=== PATIENT | male | born 1940 ===

== ENCOUNTER 2019-06-19 11:54 | Emergency (ER) | payer OTHER ==
[~2019-06-19] VITALS: Ht 170.2 cm; Wt 90.7 kg
[~2019-06-19 11:54] MED LIST: ASCO500 PO; ASPI325 PO; BENICAR; Benicar PO; CALMAGZIN PO; CRESTOR; FISH1000 PO; GARLIC; GLUCHON PO; LISI20 PO; MECL25 PO; MULVITMIND PO; OLME20 PO; SIMV80; SIMV80 PO; TAMS.4ER PO; TARKA; TERA5; TOCO1000 PO; TRAVER4240 PO; VERA240ER PO; Verapamil ER100 MG PO; Zestril40 MG PO; [UNRECOGNIZED DRUG - REMARK]; [UNRECOGNIZED DRUG - REMARK]; [UNRECOGNIZED DRUG - REMARK]; [UNRECOGNIZED DRUG - REMARK]
[2019-06-19 12:58] LABS: BASOPHILS ABSOLUTE AUTO 0.04 K/mm3 (0.00-0.23); BASOPHILS PERCENT AUTO 0 % (0-2); EOSINOPHILS ABSOLUTE AUTO 0.09 K/mm3 (0.00-0.68); EOSINOPHILS PERCENT AUTO 1 % (0-6); Hematocrit 38.6 % (37.0-53.0); Hemoglobin 12.7 g/dL (13.5-17.5); IMMATURE GRAN ABSOLUTE AUTO 0.02 K/mm3 (0.00-0.10); IMMATURE GRAN PERCENT AUTO 0 % (0-1); LYMPHOCYTES ABSOLUTE AUTO 1.39 K/mm3 (0.84-5.20); LYMPHOCYTES PERCENT AUTO 15 % (21-46); MONOCYTES ABSOLUTE AUTO 0.69 K/mm3 (0.16-1.47); MONOCYTES PERCENT AUTO 8 % (4-13); Mean Corpuscular HGB Conc 32.9 g/dL (31.5-36.5); Mean Corpuscular Volume 97 fL (80-100); Mean Platelet Volume 10.7 fL (9.1-12.4); NEUTROPHILS ABSOLUTE AUTO 6.97 K/mm3 (1.96-9.15); NEUTROPHILS PERCENT AUTO 76 % (41-73); Platelet Count 151 K/mm3 (150-400); RDW Coefficient Variation 13.3 % (11.7-14.2); RDW Standard Deviation 47.9 fL (35.1-46.3); Red Blood Cell Count 3.97 M/mm3 (4.30-5.90)
[2019-06-19 13:19] LABS: Albumin, Blood 3.5 g/dL (3.4-5.0); Albumin/Globulin Ratio 0.9 (0.8-1.8); Bilirubin, Total 0.6 mg/dL (0.1-1.0); Bun/Creatinine Ratio 23.2 (12.0-20.0); Calcium, Blood 9.2 mg/dL (8.5-10.1); Creatinine, Blood 1.81 mg/dL (0.60-1.20); Potassium, Blood 4.9 mmol/L (3.5-5.5); Total Protein, Blood 7.5 g/dL (6.4-8.2)
[2019-06-19] MEDS ORDERED: FISH OIL 1,0001 EAC1 PO (13:38)
[2019-06-19] MEDS ORDERED: Garlic1 EAC1 PO (13:38)
[2019-06-19] MEDS ORDERED: THERA1 EACH PO (13:38)
[2019-06-19] MEDS ORDERED: Vitamin C100 M1 PO (13:39)
[2019-06-19] MEDS ORDERED: CAL MAG ZINC +1 EACH PO (13:39)
[2019-06-19] MEDS ORDERED: TOCO1000 PO (13:39)
[2019-06-19] MEDS ORDERED: ASPI81CH PO (13:40)
[2019-06-19 14:14] LABS: Source, Urine Clean Catch
[2019-06-19 14:26] LABS: Bilirubin, Urine Neg (Neg); Blood, Urine 2+ (Neg); Glucose Qualitative, Urine Neg (Neg); Ketones, Urine Neg (Neg); Leukocyte Esterase, Urine 1+ (Neg); Nitrite, Urine Neg (Neg); Protein, Urine Neg (Neg); Specific Gravity, Urine 1.025 (1.003-1.022); Urobilinogen, Urine NORM (Normal)
[2019-06-19 14:31] LABS: Appearance, Urine Clear (Clear); Color, Urine Yellow (P-Yellow)
[2019-06-19 14:32] LABS: Bacteria Few /hpf; Squamous Epithelial Cells Few /hpf (Few); White Blood Cells, Urine 0-2 /hpf (0-5)
[2019-06-19] MEDS ORDERED: Augmentin 875-1 EACH PO (15:59)
[2019-06-19] MEDS ORDERED: Percocet 5-3251 EACH PO (16:28)
[2019-06-19] MEDS ORDERED: CEFP200 PO (16:28)
[2019-06-19] MEDS ORDERED: Colace250 MG PO (16:28)
== END 2019-06-19 17:26 | disposition home or self-care (01) ==
LOC: ER 11:54
PROVIDERS: Physician Assistant
DX: K52.9 Noninfective gastroenteritis and colitis, unspecified (principal); N13.2 Hydronephrosis with renal and ureteral calculous obstruction; I10 Essential (primary) hypertension; E78.5 Hyperlipidemia, unspecified; Z87.891 Personal history of nicotine dependence; Z88.2 Allergy status to sulfonamides; Z79.899 Other long term (current) drug therapy; Z79.82 Long term (current) use of aspirin
CPT/HCPCS: 36415; 74176; 80053; 81001; 83690; 85025; 87086; 93005; 93010; 96361; 96374; 96375; 99284-25; J1170; J2405; J7120

== ENCOUNTER 2021-04-21 18:09 | Observation (INO) | payer OTHER ==
[~2021-04-21] VITALS: Ht 170.2 cm; Wt 99.8 kg
[~2021-04-21 18:09] MED LIST changes: +ASPI81CH PO; +Augmentin 875-1 EACH PO; +CAL MAG ZINC +1 EACH PO; +CEFP200 PO; +Colace250 MG PO; +FISH OIL 1,0001 EAC1 PO; +Garlic1 EAC1 PO; +Percocet 5-3251 EACH PO; +THERA1 EACH PO; +Vitamin C100 M1 PO
[2021-04-21 19:10] LABS: BASOPHILS ABSOLUTE AUTO 0.03 K/mm3 (0.00-0.23); BASOPHILS PERCENT AUTO 0 % (0-2); EOSINOPHILS PERCENT AUTO 4 % (0-6); Hematocrit 36.5 % (37.0-53.0); Hemoglobin 12.3 g/dL (13.5-17.5); IMMATURE GRAN ABSOLUTE AUTO 0.01 K/mm3 (0.00-0.10); IMMATURE GRAN PERCENT AUTO 0 % (0-1); LYMPHOCYTES ABSOLUTE AUTO 1.73 K/mm3 (0.84-5.20); LYMPHOCYTES PERCENT AUTO 26 % (21-46); MONOCYTES ABSOLUTE AUTO 0.54 K/mm3 (0.16-1.47); MONOCYTES PERCENT AUTO 8 % (4-13); Mean Corpuscular HGB 32.8 pg (26.0-34.0); Mean Corpuscular HGB Conc 33.7 g/dL (31.5-36.5); Mean Corpuscular Volume 97 fL (80-100); Mean Platelet Volume 11.1 fL (9.1-12.4); NEUTROPHILS ABSOLUTE AUTO 4.18 K/mm3 (1.96-9.15); NEUTROPHILS PERCENT AUTO 62 % (41-73); Platelet Count 185 K/mm3 (150-400); RDW Coefficient Variation 14.8 % (11.7-14.2); RDW Standard Deviation 52.6 fL (35.1-46.3); Red Blood Cell Count 3.75 M/mm3 (4.30-5.90); White Blood Cell Count 6.79 K/mm3 (4.00-11.30)
[2021-04-21 19:27] LABS: Alanine Aminotransfer (ALT/SGP 31 U/L (12-78); Albumin, Blood 3.6 g/dL (3.4-5.0); Albumin/Globulin Ratio 0.9 (0.8-1.8); Alk Phos 78 U/L (50-136); Anion Gap 7 mmol/L (6-16); Aspartate Aminotrans (AST/SGOT 20 U/L (12-37); Bilirubin, Total 0.7 mg/dL (0.1-1.0); Blood Urea Nitrogen 21 mg/dL (8-24); Bun/Creatinine Ratio 21.5 (12.0-20.0); CO2, Blood 23 mmol/L (21-32); Calcium, Blood 9.1 mg/dL (8.5-10.1); Chloride, Blood 107 mmol/L (98-108); Creatinine, Blood 0.98 mg/dL (0.60-1.20); Globulin, Blood 4.2 g/dL (2.2-4.0); Glomerular Filtration Rate >60 (60-); Glucose, Blood 95 mg/dL (70-99); Potassium, Blood 4.6 mmol/L (3.5-5.5); Sodium, Blood 137 mmol/L (136-145); Total Protein, Blood 7.8 g/dL (6.4-8.2)
[2021-04-21] MEDS ORDERED: VERA180ERB PO (19:34)
[2021-04-21] MEDS ORDERED: Simvastatin20 MG PO (19:34)
[2021-04-21] MEDS ORDERED: TERA5 PO (19:34)
[2021-04-21] MEDS ORDERED: ZESTRIL40 M1 PO (19:35)
[2021-04-21] MEDS ORDERED: Aspir 8181 MG PO (19:35)
[2021-04-21 23:15] LABS: SARS-Cov-2 (COVID-19) PCR, MMC NEGATIVE (NEGATIVE)
[2021-04-22 00:44] LABS: Troponin I <0.015 ng/mL (0.000-0.040)
[2021-04-22 05:15] LABS: BASOPHILS ABSOLUTE AUTO 0.03 K/mm3 (0.00-0.23); BASOPHILS PERCENT AUTO 1 % (0-2); EOSINOPHILS ABSOLUTE AUTO 0.22 K/mm3 (0.00-0.68); EOSINOPHILS PERCENT AUTO 4 % (0-6); Hematocrit 35.7 % (37.0-53.0); Hemoglobin 11.9 g/dL (13.5-17.5); IMMATURE GRAN ABSOLUTE AUTO 0.01 K/mm3 (0.00-0.10); IMMATURE GRAN PERCENT AUTO 0 % (0-1); LYMPHOCYTES ABSOLUTE AUTO 1.51 K/mm3 (0.84-5.20); LYMPHOCYTES PERCENT AUTO 24 % (21-46); MONOCYTES ABSOLUTE AUTO 0.59 K/mm3 (0.16-1.47); MONOCYTES PERCENT AUTO 9 % (4-13); Mean Corpuscular HGB 32.3 pg (26.0-34.0); Mean Corpuscular HGB Conc 33.3 g/dL (31.5-36.5); Mean Corpuscular Volume 97 fL (80-100); Mean Platelet Volume 11.1 fL (9.1-12.4); NEUTROPHILS ABSOLUTE AUTO 3.97 K/mm3 (1.96-9.15); NEUTROPHILS PERCENT AUTO 63 % (41-73); Platelet Count 179 K/mm3 (150-400); RDW Coefficient Variation 14.7 % (11.7-14.2); RDW Standard Deviation 52.1 fL (35.1-46.3); Red Blood Cell Count 3.68 M/mm3 (4.30-5.90); White Blood Cell Count 6.33 K/mm3 (4.00-11.30)
--- NOTE | 2021-04-22 05:45 | NUR ---
SHIFT SUMMARY FULL CODE PT ADMITTED FOR OVERDOSE OF VERAPAMIL. ON TELE SR. BP STABLE THROUGHOUT SHIFT. PT [id number]. ABLE TO MAKE NEEDS KNOWN. CALL LIGHT IN REACH. NO SIGNIFICANT CHANGES DURING THIS SHIFT.
[2021-04-22 05:48] LABS: Alanine Aminotransfer (ALT/SGP 34 U/L (12-78); Albumin, Blood 3.6 g/dL (3.4-5.0); Albumin/Globulin Ratio 0.9 (0.8-1.8); Alk Phos 73 U/L (50-136); Anion Gap 4 mmol/L (6-16); Aspartate Aminotrans (AST/SGOT 14 U/L (12-37); Bilirubin, Total 0.8 mg/dL (0.1-1.0); Blood Urea Nitrogen 20 mg/dL (8-24); Bun/Creatinine Ratio 17.7 (12.0-20.0); CO2, Blood 29 mmol/L (21-32); Chloride, Blood 105 mmol/L (98-108); Creatinine, Blood 1.13 mg/dL (0.60-1.20); Glomerular Filtration Rate >60 (60-); Glucose, Blood 106 mg/dL (70-99); Potassium, Blood 4.7 mmol/L (3.5-5.5); Sodium, Blood 138 mmol/L (136-145); Total Protein, Blood 7.6 g/dL (6.4-8.2)
--- NOTE | 2021-04-22 13:14 | NUR ---
DISCHARGE PATIENT TRANSPORTED VIA WHEELCHAIR TO PRIVATE VEHICLE. DISCHARGE INSTRUCTIONS EXPLAINED TO PATIENT. PATIENT STATED UNDERSTANDING. DISCHARGE INSTRUCTIONS SENT WITH PATIENT. IV REMOVED WITHOUT DIFFICULTY. TELE REMOVED WITHOUT DIFFICULTY. MEDICATIONS FAXED TO PREFERRED PHARMACY. BELONGINGS SENT WITH PATIENT.
== END 2021-04-22 13:35 | disposition home or self-care (01) ==
LOC: ER 18:09 → ERHOLD 20:36 → ER 20:36 → ERHOLD 21:42 → MEDS 21:42
PROVIDERS: Physician Assistant; ADMIT Hospitalist
DX: T46.1X1A Poisoning by calcium-channel blockers, accidental (unintentional), initial encounter (principal); I44.0 Atrioventricular block, first degree; J84.9 Interstitial pulmonary disease, unspecified; I10 Essential (primary) hypertension; E78.5 Hyperlipidemia, unspecified; N40.0 Benign prostatic hyperplasia without lower urinary tract symptoms; Z87.891 Personal history of nicotine dependence; Z88.2 Allergy status to sulfonamides; Z20.822 Contact with and (suspected) exposure to COVID-19
CPT/HCPCS: 36415; 71045; 80053; 83880; 84443; 84484; 85025; 93005; 93010; 96365; 96372; 96375; 99285-25; A9270; G0378; J0610; J1650; J1940; U0004